=== PATIENT | female | born 1945 | race Two or more races ===

== ENCOUNTER 2021-05-03 08:49 | Outpatient (CLI) | payer OTHER | END 2021-05-03 08:50 | disposition home or self-care (01) | LOC: NUCLEAR 08:49 | PROVIDERS: ATTEND Internal Medicine Cardiovascular Disease | DX: I20.9 Angina pectoris, unspecified (principal); R07.89 Other chest pain | CPT/HCPCS: 78452; 93017; A9500; J0153 ==